=== PATIENT | female | born 1955 | race Caucasian/White ===

== ENCOUNTER 2020-02-07 16:06 | Emergency (ER) | payer MEDICAID ==
[2020-02-07 16:41] VITALS: BP 154/56; PULSE 92
[2020-02-07] MEDS ORDERED: cefTRIAXone 1 GM, Lidocaine 1% 2.1 ML IM ONE ×2 (17:04)
--- NOTE | 2020-02-07 17:12 | EDM.PDOC ---
ED HPI GENERAL MEDICAL PROBLEM - General Chief Complaint: Wound Recheck Stated Complaint: RT LOWER LEG REDNESS Time Seen by Provider: 02/07/20 16:30 Source of Information: Reports: Patient History Limitations: Reports: No Limitations - History of Present Illness INITIAL COMMENTS - FREE TEXT/NARRATIVE: pt was seen on by Dung Hooker and was placed on sulfa. Today this appeasrs to be weepy, it is itchy and she thinks it is reder. She does not feel this is painful. Pt did develop severe sepsis when she had something similar on the other leg. Onset: Gradual Duration: Hour(s): Location: Reports: Lower Extremity, Right Associated Symptoms: Reports: No Other Symptoms - Related Data Allergies Allergy/AdvReac Type Severity Reaction Status Date / Time penicillin V Allergy Mild Rash Verified 02/07/20 16:30 Home Meds: Home Meds Escitalopram Oxalate 20 mg PO DAILY 09/14/15 [History] Hydrochlorothiazide 25 mg PO DAILY 09/14/15 [History] Metoprolol Succinate 200 mg PO DAILY 09/14/15 [History] clonazePAM [Clonazepam] 1 mg PO BID PRN 09/14/15 [History] guanFACINE HCl [Tenex] 1 mg PO DAILY 09/14/15 [History] Gabapentin [Neurontin] 2 cap PO TID 02/07/20 [History] Sulfamethoxazole/Trimethoprim [Sulfamethoxazole-Tmp Ds Tablet] 1 tab PO BID 02/07/20 [History] Past Medical History Cardiovascular History: Reports: Hypertension Respiratory History: Reports: Sleep Apnea Psychiatric History: Reports: Anxiety, Depression Dermatologic History: Reports: Venous Stasis Dermatitis Social & Family History - Family History Family Medical History: Noncontributory ED ROS GENERAL - Review of Systems Review Of Systems: See Below Constitutional: Reports: No Symptoms, Other (pt is presently feeling well. ) HEENT: Reports: No Symptoms Respiratory: Reports: No Symptoms Cardiovascular: Reports: No Symptoms Endocrine: Reports: No Symptoms GI/Abdominal: Reports: No Symptoms Skin: Reports: Rash, Erythema, Other (pt has redness and a bump look to the skin on the area of redness on lower rt leg. ) ED EXAM, SKIN/RASH Exam: See Below Text/Narrative:: pt arrived with redness and lumpy type rash. There is slight weeping present. Exam Limited By: No Limitations General Appearance: Alert, Anxious Extremities: Other (pt has redness on the rt lower leg. She feels like this itch. She has no rash anywhere elese. She has some small vesicles on the surface. She is presently on bactrim. ) Neurological: Alert, Oriented, Normal Cognition Course - Vital Signs Last Recorded V/S: Last Vital Signs Temp 35.6 C L 02/07/20 16:26 Pulse 92 02/07/20 16:26 Resp 20 02/07/20 16:26 BP 154/56 H 02/07/20 16:26 Pulse Ox 95 02/07/20 16:26 - Orders/Labs/Meds Labs: Laboratory Tests 02/07/20 Range/Units 17:20 WBC 7.5 (4.5-11.0) K/uL RBC 5.51 H (3.30-5.50) M/uL Hgb 14.1 (12.0-15.0) g/dL Hct 45.3 (36.0-48.0) % MCV 82 (80-98) fL MCH 26 L (27-31) pg MCHC 31 L (32-36) % Plt Count 256 (150-400) K/uL Neut % (Auto) 69 H (36-66) % Lymph % (Auto) 17 L (24-44) % [place] % (Auto) 8 H (2-6) % Eos % (Auto) 6 H (2-4) % Baso % (Auto) 1 (0-1) % Meds: Medications Discontinued Medications Generic Name Dose Route Start Last Admin Trade Name Freq PRN Reason Stop Dose Admin Ceftriaxone Sodium 1 gm/ 0 gm 02/07/20 17:04 02/07/20 17:27 Lidocaine HCl 2.1 ml IM 02/07/20 17:05 1 inj ONETIME ONE Administration - Re-Assessments/Exams Free Text/Narrative Re-Assessment/Exam: 02/07/20 17:20 pt will continue the bactrim. rocephen 1 gm was given to the pt. This is feeling very itchy . She will add benadryl and use a small amount of kenalog cream Departure - Departure Time of Disposition: 17:09 Disposition: Home, Self-Care 01 Condition: Fair Clinical Impression: Infected insect bite - Discharge Information Instructions: Insect Bite, Adult, [id number] Referrals: Dung Knapp BED OPERATOR [Primary Care Provider] - Forms: ED Department Discharge Care Plan Goals: warm pack the wound bid and dry it well, apply kenalog cream to the area twice daily for the next 3-4 days. appt with Dung on sat or sat. Pt may use benadryl 50 mg q8h as needed if itches well continue with sulfa as directed. elevate the rt leg to keep the swelling down. Sepsis Event Note (ED) - Focused Exam Vital Signs: Vital Signs Temp Pulse Resp BP Pulse Ox 02/07/20 16:26 35.6 C L 92 20 154/56 H 95
== END 2020-02-07 17:49 | disposition home or self-care (01) ==
LOC: JP.ED 16:06
DX: S80.861A Insect bite (nonvenomous), right lower leg, initial encounter (principal); L08.9 Local infection of the skin and subcutaneous tissue, unspecified; I10 Essential (primary) hypertension; F41.9 Anxiety disorder, unspecified; F32.9 Major depressive disorder, single episode, unspecified; Z79.899 Other long term (current) drug therapy; Z88.0 Allergy status to penicillin; W57.XXXA Bitten or stung by nonvenomous insect and other nonvenomous arthropods, initial encounter
CPT/HCPCS: 36415; 85025; 96372; 99283; J0696; J2001

== ENCOUNTER 2020-05-12 07:03 | Day surgery (SDC) | payer MEDICAID ==
[~2020-05-12 07:03] MED LIST: Sodium Chloride 0.9% 10 ML Syringe FLUSH PRN
[2020-05-12] MEDS ORDERED: Sodium Chloride 0.9% 10 ML SDV FLUSH PRN (07:30)
[2020-05-12] MEDS ORDERED: fentaNYL 100 MCG/2 ML SDV ONE (07:31)
[2020-05-12] MEDS ORDERED: Midazolam 1 MG/ML 2 ML SDV ONE (07:31)
[2020-05-12] MEDS ORDERED: Propofol 200 MG/20 ML SDV ONE (07:31)
[2020-05-12 08:34] VITALS: BP 130/81; PULSE 76
--- NOTE | 2020-05-12 12:52 | OR ---
DATE OF PROCEDURE: 05/12/2020 SURGEON: Claire Espinal MD POSTOPERATIVE CARE: Postoperative care will be provided mainly at the [address] [place] [address] [facility] in conjunction with [facility]. PREOPERATIVE DIAGNOSIS: Cataract, left eye. POSTOPERATIVE DIAGNOSIS: Cataract, left eye. PROCEDURE: Phacoemulsification with intraocular lens placement, left eye. ANESTHESIA: Topical and intracameral. ESTIMATED BLOOD LOSS: Minimal. COMPLICATIONS: None. PATHOLOGY SPECIMENS: None. SURGICAL FINDINGS: None. INDICATION FOR PROCEDURE: The patient is a 64-year-old female with history of a visually significant cataract in the left eye, which interfered with activities of daily living. This consisted of a nuclear sclerosis cataract. Following careful discussion of the risks, benefits and alternatives to cataract extraction with intraocular lens placement including blindness and , the patient elected to proceed, and informed, written consent was obtained prior to the procedure. DESCRIPTION OF THE PROCEDURE: The patient was previously identified, and a cely placed above the left eye. All sources, including the patient, indicated that the left eye was the correct eye. The patient was subsequently taken to the operating room where standard monitors were applied. The patient was then prepped and draped in the usual sterile fashion for ophthalmic surgery. Attention was first directed at the 12 o'clock position where a paracentesis port was fashioned. Shugar solution followed by Viscoat was instilled into the eye. Attention was then directed to the 8:30 position where a triplanar incision was made in a near-clear manner using a keratome. A continuous capsulorrhexis was then made using a combination of the cystotome and Utrata forceps. Hydrodissection was achieved using a balanced salt solution, and the lens rotated nicely. Phacoemulsification was then done using a modified [id number] technique without complication. Phaco time was 6.37 CDE. The remaining cortex was removed using the irrigation/aspiration handpiece. Provisc was then instilled into the eye. A Technis lens, model PCB00, at 19.5 diopters was then placed in the capsular bag using an [place] injector. The remaining viscoelastic was removed using the irrigation/aspiration forceps. All wounds were then checked and found to be watertight. The lid speculum and drapes were removed. Maxitrol ointment was placed in the patient's left eye, and the eye was shielded. The patient tolerated the procedure well. The patient was instructed to follow up tomorrow. All needle and sponge counts were correct at the end of the procedure. Claire Espinal MD /[id number]
== END 2020-05-12 08:50 | disposition home or self-care (01) ==
LOC: JP.SDS 07:03
PROVIDERS: ATTEND Ophthalmology
DX: E11.36 Type 2 diabetes mellitus with diabetic cataract (principal); I10 Essential (primary) hypertension; E66.9 Obesity, unspecified; Z88.0 Allergy status to penicillin; Z68.43 Body mass index [BMI] 50.0-59.9, adult
CPT/HCPCS: J2250; J2704; J3010; V2632

== ENCOUNTER 2020-06-09 07:02 | Day surgery (SDC) | payer MEDICAID ==
[2020-06-09] MEDS ORDERED: Sodium Chloride 0.9% 10 ML Syringe FLUSH PRN (07:45)
[2020-06-09 09:12] VITALS: BP 111/72; PULSE 71
--- NOTE | 2020-06-09 13:12 | OR ---
DATE OF PROCEDURE: 06/09/2020 SURGEON: Claire Espinal MD POSTOPERATIVE CARE: Postoperative care will be provided mainly at the [address] [place] [address] [facility] in conjunction with [facility]. PREOPERATIVE DIAGNOSIS: Cataract, right eye. POSTOPERATIVE DIAGNOSIS: Cataract, right eye. PROCEDURE: Phacoemulsification with intraocular lens placement, right eye. ANESTHESIA: Topical and intracameral. ESTIMATED BLOOD LOSS: Minimal. COMPLICATIONS: None. PATHOLOGY SPECIMENS: None. SURGICAL FINDINGS: None. INDICATION FOR PROCEDURE: The patient is a 64-year-old female with history of a visually significant cataract in the right eye, which interfered with activities of daily living. This consisted of a nuclear sclerosis cataract. Following careful discussion of the risks, benefits and alternatives to cataract extraction with intraocular lens placement including blindness and , the patient elected to proceed, and informed, written consent was obtained prior to the procedure. DESCRIPTION OF THE PROCEDURE: The patient was previously identified, and a cely placed above the right eye. All sources, including the patient, indicated that the right eye was the correct eye. The patient was subsequently taken to the operating room where standard monitors were applied. The patient was then prepped and draped in the usual sterile fashion for ophthalmic surgery. Attention was first directed at the 12 o'clock position where a paracentesis port was fashioned. Shugar solution followed by Viscoat was instilled into the eye. Attention was then directed to the 8:30 position where a triplanar incision was made in a near-clear manner using a keratome. A continuous capsulorrhexis was then made using a combination of the cystotome and Utrata forceps. Hydrodissection was achieved using a balanced salt solution, and the lens rotated nicely. Phacoemulsification was then done using a modified [id number] technique without complication. Phaco time was 5.26 CDE. The remaining cortex was removed using the irrigation/aspiration handpiece. Provisc was then instilled into the eye. A Technis lens, model PCB00, at 19.0 diopters was then placed in the capsular bag using an [place] injector. The remaining viscoelastic was removed using the irrigation/aspiration forceps. All wounds were then checked and found to be watertight. The lid speculum and drapes were removed. Maxitrol ointment was placed in the patient's right eye, and the eye was shielded. The patient tolerated the procedure well. The patient was instructed to follow up tomorrow. All needle and sponge counts were correct at the end of the procedure. Claire Espinal MD /[id number]
== END 2020-06-09 08:45 | disposition home or self-care (01) ==
LOC: JP.SDS 07:02
PROVIDERS: ATTEND Ophthalmology
DX: E11.36 Type 2 diabetes mellitus with diabetic cataract (principal); I10 Essential (primary) hypertension; E78.5 Hyperlipidemia, unspecified; E66.9 Obesity, unspecified; Z88.0 Allergy status to penicillin; Z68.43 Body mass index [BMI] 50.0-59.9, adult
CPT/HCPCS: 66984; V2632

== ENCOUNTER 2021-07-15 13:06 | Emergency (ER) | payer MEDICARE, BC ==
[2021-07-15 13:39] VITALS: BP 100/49; PULSE 101
[2021-07-15] MEDS ORDERED: Famotidine 20 MG/2 ML SDV IVPUSH ONE (13:59)
[2021-07-15] MEDS ORDERED: diphenhydrAMINE 50 MG/ML SDV IVPUSH ONE (13:59)
[2021-07-15] MEDS ORDERED: methylPREDNISolone Sodium Succinate 125 MG/2 ML SDV IVPUSH ONE (13:59)
[2021-07-15] MEDS ORDERED: EPINEPHrine 1 MG/ML SDV SUBCUT ONE (14:02)
[2021-07-15 14:56] LABS: CORONAVIRUS COVID-19 NAA NEGATIVE (NEGATIVE)
== END 2021-07-15 15:27 | disposition home or self-care (01) ==
LOC: JP.ED 13:06
DX: L50.9 Urticaria, unspecified (principal); E78.00 Pure hypercholesterolemia, unspecified; I10 Essential (primary) hypertension; E11.40 Type 2 diabetes mellitus with diabetic neuropathy, unspecified; E66.9 Obesity, unspecified; Z68.42 Body mass index [BMI] 45.0-49.9, adult; Z87.891 Personal history of nicotine dependence; Z88.0 Allergy status to penicillin; Z91.040 Latex allergy status; Z79.82 Long term (current) use of aspirin; Z79.84 Long term (current) use of oral hypoglycemic drugs; Z79.899 Other long term (current) drug therapy; Z20.822 Contact with and (suspected) exposure to COVID-19
CPT/HCPCS: 0241U; 96372; 96374; 96375; 99283; 99284; J0171; J1200; J2930; J3490